=== PATIENT | female | born 1980 | race Caucasian/White ===

== ENCOUNTER 2020-10-05 13:05 | Emergency (ER) | payer OTHER, SELFPAY ==
[~2020-10-05] VITALS: Ht 165.1 cm; Wt 68.0 kg
[2020-10-05 13:25] VITALS: BP_SYST 133
[2020-10-05 13:57] LABS: BASOPHILS % (AUTO) 0.6 % (0.0-2.0); EOSINOPHILS # (AUTO) 0.1 K/uL (0.0-0.4); EOSINOPHILS % (AUTO) 0.8 % (0.0-4.0); HEMATOCRIT 42.1 % (36-48); HEMOGLOBIN 14.5 g/dL (12.0-16.0); LYMPHOCYTES # (AUTO) 2.6 K/uL (1.0-5.5); LYMPHOCYTES % (AUTO) 34.2 % (20.5-51.5); MEAN CORPUSCULAR HEMOGLOBIN 33 pg (27-31); MEAN CORPUSCULAR HGB CONC 34 % (32-36); MEAN CORPUSCULAR VOLUME 95 fL (79.0-98.0); MONOCYTES # (AUTO) 0.5 K/uL (0.0-1.0); NEUTROPHILS # (AUTO) 4.5 K/uL (1.8-7.7); NEUTROPHILS % (AUTO) 58.4 % (40.0-70.0); PLATELET COUNT (AUTO) 357 K/uL (130-430); RED BLOOD CELL COUNT(AUTO) 4.44 MIL/uL (4.2-6.2); RED CELL DISTRIBUTION WIDTH 13.4 % (9.0-15.0); WHITE BLOOD COUNT (AUTO) 7.7 K/uL (4.8-10.8)
[2020-10-05 13:58] LABS: ANION GAP 6 (5-15); CALCIUM 8.6 mg/dL (8.4-11.0); CHLORIDE 101 mmol/L (98-107); CREATININE 0.88 mg/dL (0.55-1.30); GLUCOSE 94 mg/dL (70-99); POTASSIUM 3.3 mmol/L (3.5-5.1); SODIUM SERUM 130 mmol/L (136-145); UREA NITROGEN, BLOOD 7 mg/dL (8-21)
[2020-10-05 14:02] LABS: GFR AFRICAN AMERICAN 92 mL/min (>90)
[2020-10-05 14:06] LABS: ALANINE AMINOTRANSFERASE 47 U/L (12-78); ALBUMIN 4.4 g/dL (3.4-4.8); ALCOHOL, BLOOD 376 mg/dL (<10); ASPARTATE AMINOTRANSFERASE 21 U/L (10-37); TOTAL BILIRUBIN 0.2 mg/dL (0.0-1.0)
[2020-10-05 14:09] LABS: ACETAMINOPHEN < 1 ug/mL (1-30)
[2020-10-05 14:43] LABS: BILIRUBIN,URINE NEGATIVE (NEGATIVE); CLARITY/URINE CLEAR (CLEAR); COLOR,URINE YELLOW (YELLOW); GLUCOSE,URINE NEGATIVE (NEGATIVE); KETONES,URINE NEGATIVE (NEGATIVE); LEUKOCYTE ESTERASE ,URINE NEGATIVE (NEGATIVE); NITRITE, URINE NEGATIVE (NEGATIVE); PROTEIN URINE NEGATIVE (NEGATIVE); UROBILINOGEN,URINE 0.2 (0.2-1.0)
[2020-10-05 15:00] LABS: BLOOD, URINE TRACE (NEGATIVE)
[2020-10-05 15:02] LABS: BACTERIA,URINE None Seen /HPF (None Seen); RBC,URINE 0-3 /HPF (0-3); TRICHOMONAS,URINE None Seen /HPF (None Seen); WBC,URINE NONE SEEN /HPF (0-3); YEAST,URINE None Seen /HPF (None Seen)
[2020-10-05 15:05] LABS: BARBITURATE, URINE NEGATIVE (NEG <=200); BENZODIAZEPINE, URINE NEGATIVE (NEG <=150); CANNABINOID, URINE NEGATIVE (NEG <=50); COCAINE, URINE NEGATIVE (NEG <=150); METHAMPHETAMINES SCREEN,URINE NEGATIVE (NEG <=500); OPIATE, URINE NEGATIVE (NEG <=100); PHENCYCLIDINE SCREEN,URINE NEGATIVE (NEG <=25); UR TRICYCLIC ANTIDEPRESSANTS NEGATIVE (NEG <=300); URINE AMPHETAMINE NEGATIVE (NEG <=500); URINE METHADONE NEGATIVE (NEG <=200); URINE OXYCODONE SCREEN NEGATIVE (NEG <=100); URINE PROPOXYPHENE SCREEN NEGATIVE (NEG <=300)
[2020-10-05] MEDS ORDERED: ALPRAZolam 0.25 MG TABLET PO ONE (19:30)
[2020-10-05] MEDS ORDERED: POTASSIUM CHLORIDE 20 MEQ TAB.PRT.SR PO ONE (20:15)
[2020-10-06 05:00] VITALS: BP_SYST 146
== END 2020-10-06 05:00 | disposition home or self-care (01) ==
LOC: SED 13:05
DX: F32.9 Major depressive disorder, single episode, unspecified (principal); F10.129 Alcohol abuse with intoxication, unspecified; Z20.822 Contact with and (suspected) exposure to COVID-19; Y90.8 Blood alcohol level of 240 mg/100 ml or more
CPT/HCPCS: 36415; 80053; 80307; 81000; 85025; 87426; 93005; 99285; G0480; G0481; G0482

== ENCOUNTER 2021-05-11 15:42 | Emergency (ER) | payer OTHER, SELFPAY ==
[~2021-05-11] VITALS: Ht 167.6 cm; Wt 81.6 kg
[2021-05-11 15:45] VITALS: BP_SYST 143
--- NOTE | 2021-05-11 15:45 | NUR ---
Patient triaged and placed in waiting room. VSS and patient appears in no acute distress at this time. Accompanied by SELF, awaiting available bed, and MD notified of need for MSE.
--- NOTE | 2021-05-11 16:40 | NUR ---
BROUGHT BACK TO BED #4 AND REPORT GIVEN TO MARTHA
--- NOTE | 2021-05-11 16:48 | NUR ---
ER at bedside examining patient.
--- NOTE | 2021-05-11 16:50 | NUR ---
Pt. brought self in with c/o N/V since noon, states she took Motrin for mild DYKES and then vomitted, states vomit has blood in it so became nervous and took 0.25 mg. of Xanax; denies any abd. pain
[2021-05-11 17:44] LABS: BASOPHILS # (AUTO) 0.1 K/uL (0.0-0.2); EOSINOPHILS % (AUTO) 0.3 % (0.0-4.0); HEMATOCRIT 38.7 % (36-48); HEMOGLOBIN 13.3 g/dL (12.0-16.0); LYMPHOCYTES # (AUTO) 0.8 K/uL (1.0-5.5); LYMPHOCYTES % (AUTO) 8.4 % (20.5-51.5); MEAN CORPUSCULAR HEMOGLOBIN 32 pg (27-31); MEAN CORPUSCULAR HGB CONC 34 % (32-36); MEAN CORPUSCULAR VOLUME 94 fL (79.0-98.0); MONOCYTES # (AUTO) 0.4 K/uL (0.0-1.0); MONOCYTES % (AUTO) 4.2 % (1.7-9.3); NEUTROPHILS # (AUTO) 7.9 K/uL (1.8-7.7); NEUTROPHILS % (AUTO) 86.1 % (40.0-70.0); PLATELET COUNT (AUTO) 335 K/uL (130-430); RED BLOOD CELL COUNT(AUTO) 4.12 MIL/uL (4.2-6.2); RED CELL DISTRIBUTION WIDTH 14.6 % (9.0-15.0); WHITE BLOOD COUNT (AUTO) 9.2 K/uL (4.8-10.8)
[2021-05-11 17:49] LABS: BILIRUBIN,URINE NEGATIVE (NEGATIVE); CLARITY/URINE SL CLOUDY (CLEAR); COLOR,URINE YELLOW (YELLOW); GLUCOSE,URINE NEGATIVE (NEGATIVE); KETONES,URINE NEGATIVE (NEGATIVE); LEUKOCYTE ESTERASE ,URINE 1+ (NEGATIVE); NITRITE, URINE NEGATIVE (NEGATIVE); PH,URINE 6.5 (5.0-8.0); PROTEIN URINE TRACE (NEGATIVE); UROBILINOGEN,URINE 0.2 (0.2-1.0)
[2021-05-11 17:51] LABS: BLOOD, URINE TRACE (NEGATIVE)
[2021-05-11 17:59] LABS: CALCIUM 9.1 mg/dL (8.4-11.0); CREATININE 0.89 mg/dL (0.55-1.30); POTASSIUM 3.6 mmol/L (3.5-5.1)
[2021-05-11 18:05] LABS: ALBUMIN 4.3 g/dL (3.4-4.8); TOTAL BILIRUBIN 0.3 mg/dL (0.0-1.0)
[2021-05-11 18:29] LABS: PROTHROMBIN TIME 10.4 SECS (9.5-12.5)
[2021-05-11] MEDS ORDERED: OMEP20CA15 PO (18:48)
[2021-05-11] MEDS ORDERED: ONDA-8 TL (18:48)
[2021-05-11] MEDS ORDERED: ONDANSETRON 4 MG ODT TAB PO ONE (19:00)
[2021-05-11 19:21] VITALS: BP_SYST 142
--- NOTE | 2021-05-11 19:22 | NUR ---
Patient given written and verbal discharge instructions and verbalizes understanding. ER Dr. Montes De Oca discussed with patient the results and treatment provided. Patient in stable condition. ID arm band removed. IV catheter removed intact and dressing applied, no active bleeding. Rx of Zofran and Omeprazole given. Patient educated on pain management and to follow up with PMD. Pain Scale 0. Opportunity for questions provided and answered. Medication side effect fact sheet provided.
[2021-05-11 19:37] LABS: BACTERIA,URINE MODERATE /HPF (None Seen); MUCUS,URINE 2+ /LPF (None Seen); RBC,URINE 0-3 /HPF (0-3); URINE AMORPHOUS URATE 2+ /HPF (None Seen); WBC,URINE 20-50 /HPF (0-3)
== END 2021-05-11 19:22 | disposition home or self-care (01) ==
LOC: SED 15:42
DX: K92.0 Hematemesis (principal); K29.70 Gastritis, unspecified, without bleeding
CPT/HCPCS: 36415; 80053; 81000; 81025; 83605; 83690; 84703; 85025; 85610; 85730; 86886; 86900; 86901; 87086; 99283; Q0162

== ENCOUNTER 2021-09-12 15:23 | Emergency (ER) | payer OTHER, SELFPAY ==
[~2021-09-12] VITALS: Ht 167.6 cm; Wt 84.4 kg
[~2021-09-12 15:23] MED LIST: OMEP20CA15 PO; ONDA-8 TL
--- NOTE | 2021-09-12 15:25 | NUR ---
BLOOD AND CULTURES DRAWN AND SENT TO LAB.
[2021-09-12] MEDS ORDERED: NACL 0.9% 1,000 ML IV ONE (15:30)
--- NOTE | 2021-09-12 15:38 | NUR ---
COVID SWAB COLLECTED AND SENT
--- NOTE | 2021-09-12 15:43 | NUR ---
PATIENT ARRIVED BY EMT UNRESPONSIVE AFTER POSSIBLE OVERDOSE. PATIENT FOUND IN HER CAR AND 911 CALLED. PATIENT FOUND WITH EMPTY BOTTLE OF HYDROCODONE, BUSPAR, FLUOXATINE. PATIENT RESPONSIVE TO PAINFUL STIMULUS BUT NOT VERBAL, PATIENT 96% ON ROOM AIR, PATIENT ST ON THE CARIDAC MONITOR. PATIENT HAS VOMIT ON CLOTHES, ADMINISTERED ZOFRAN AND NARCAN IN ROUTE. POISON CONTROL NOTIFIED AT [phone] SPOKE WITH DON CARPENTER PACKING 109 AND GIVEN RECOMMENDATIONS OF CONTINUOUS CARDIAC MONITORING, LABS, MADE AWARE. ON THE WAY.
[2021-09-12 15:47] VITALS: BP_SYST 105
[2021-09-12 15:58] LABS: BASOPHILS % (AUTO) 0.5 % (0.0-2.0); EOSINOPHILS # (AUTO) 0.1 K/uL (0.0-0.4); HEMATOCRIT 40.6 % (36-48); HEMOGLOBIN 13.6 g/dL (12.0-16.0); LYMPHOCYTES # (AUTO) 2.8 K/uL (1.0-5.5); LYMPHOCYTES % (AUTO) 42.6 % (20.5-51.5); MEAN CORPUSCULAR HEMOGLOBIN 30 pg (27-31); MEAN CORPUSCULAR HGB CONC 34 % (32-36); MEAN CORPUSCULAR VOLUME 91 fL (79.0-98.0); MONOCYTES # (AUTO) 0.5 K/uL (0.0-1.0); MONOCYTES % (AUTO) 7.2 % (1.7-9.3); NEUTROPHILS # (AUTO) 3.1 K/uL (1.8-7.7); NEUTROPHILS % (AUTO) 47.7 % (40.0-70.0); PLATELET COUNT (AUTO) 278 K/uL (130-430); RED BLOOD CELL COUNT(AUTO) 4.48 MIL/uL (4.2-6.2); RED CELL DISTRIBUTION WIDTH 14.7 % (9.0-15.0); WHITE BLOOD COUNT (AUTO) 6.6 K/uL (4.8-10.8)
--- NOTE | 2021-09-12 16:21 | NUR ---
PATIENT AWAKE AT THIS TIME AND WITHDRAWN, REFUSES TO TALK TO STAFF. CHARGE NURSE TRAN NOTIFIED AT THIS TIME THAT PATIENT NEEDS SITTER DUE TO BEING POSSIBLY SUICIDAL. PATIENT AWAKE LAYING ON HER SIDE QUIET. PATIENT REFUSES TO GIVE URINE SPECIMEN AT THIS TIME. NOTIFIED. PATIENT'S ON THE WAY TO BEDSIDE AND WILL ASK HIM TO ENCOURAGE PATIENT. PATIENT IN SAFE ENVIORNMENT CLOSE TO NURSING STATION AND CHARGE NURSE CALLED FOR SITTER AT THIS TIME.
--- NOTE | 2021-09-12 16:27 | NUR ---
ATTEMPT TO COLLECT URINE BUT UNABLE
[2021-09-12 16:37] LABS: CREATININE 0.83 mg/dL (0.55-1.30); POTASSIUM 3.5 mmol/L (3.5-5.1)
--- NOTE | 2021-09-12 16:40 | NUR ---
ACCOMPANIED DR. MUNGUIA TO SPEAK WITH AND MOTHER. REPORTS LAST TIME HE SAW PATIENT WAS AROUND 5 AM AND PATIENT WAS IN BED AT HOME. SHE TOOK THE KIDS TO SCHOOL AND SPOKE TO HIM AGAIN AROUND 9 AM. HE REPORTS THAT SHE SAID SHE WAS HAVING A ROUGH DAY. MOTHER REPORTS DAUGHTER CALLED HER SISTER TO TELL HER WHAT A GOOD SISTER SHE WAS. FAMILY REPORTS HAS PREVIOUS HISTORY OF SI,DEPRESSION, AND ETOH ABUSE . LAST YEAR WHERE SHE HAD A "BREAKDOWN AND PANIC ATTACK. SHE WANTED TO HURT HERSELF AND CALLED 911." PRIMARY NURSE INFORMED
[2021-09-12 16:46] LABS: ALBUMIN 4.1 g/dL (3.4-4.8)
--- NOTE | 2021-09-12 16:51 | NUR ---
MOTHER AT BEDSIDE.
[2021-09-12 17:02] LABS: TOTAL BILIRUBIN 0.1 mg/dL (0.0-1.0)
[2021-09-12 17:29] LABS: INR 0.9 (0.8-1.2); PROTHROMBIN TIME 9.3 SECS (9.5-12.5)
--- NOTE | 2021-09-12 17:37 | NUR ---
MOTHER AT BEDSIDE AND STATES THAT PATIENT HAS MADE OTEHR ATTEMPTS TO HARM HERSELF BY WAY OF INGESTING PILLS. MOTHER STATES THAT PATIENT HAS BEEN DEPRESSED SINCE LOSING STEP DAD TO COVID. PATIENT IS IN AA PROGRAM. PATIENT CALLED HER YOUNGER SIMBLING TODAY AND ASKED IF SHE WAS "A GOOD BIG SISTER". MOTHER STATES THAT SHE STATES THAT SHE BELEIVES HER DAUGHTER DID NOT HAVE ANY PILLS IN THE BOTTLES AND SHE "WILL DRINK". WILL CONTINUE TO MONITOR PATIENT. PATIENT MORE AWAKE AND ALERT BUT WITHDRAWN. LAYS WITH EYES OPEN AND DOES NOT ANSWER VERBAL COMMAND. PATIENT REFUSES TO GIVE URINE SPECIMEN AT THIS TIME HOWERVER MOTHER WILL ASSIST IN OBTAINING URINE.
[2021-09-12] MEDS ORDERED: HYDR-3927 PO (17:45)
[2021-09-12] MEDS ORDERED: BUSP15TA3 PO (17:45)
[2021-09-12] MEDS ORDERED: FLUO40CA8 PO (17:45)
[2021-09-12] MEDS ORDERED: HYDR-3921 PO (17:45)
--- NOTE | 2021-09-12 17:59 | NUR ---
PATIENT UP AND AMBULATORY TO RESTROOM. PATIENT SMILES REALLY BIG AND BRIGHT BUT STATES SHE DOES NOT REMEMBER TAKING ANY MEDEICATIONS. PATIENT COOPERATIVE IN GIVING URINE SPECIMEN AND IN RESTROOM. PATIENT STABLE WITH AMBULATION. WILL CONTINUE TO MONITOR THE PATIENT.
--- NOTE | 2021-09-12 18:13 | NUR ---
PATIENT STATES SHE TOOK 3 NORCO, UNKNOWN AMOUNT OF BUSPAR AND NONE OF THE PROZAC, PATIENT UNABLE TO URINATE AT THIS TIME EVEN WHEN UP TO THE BATHROOM
--- NOTE | 2021-09-12 18:15 | NUR ---
PATIENT DENIES SI AND HI AND DENIES HALLUCINATIONS. PATIENT APPEARS VERY WITHDRAWN. COMFORT MEASURES IMPLEMENTED AND GIVEN WARM BLANKETS.
--- NOTE | 2021-09-12 18:54 | NUR ---
poison control called to check on patient at this time, given vitals signs and updates, given telephone to MD to take orders. patient's brother is at bedside at this time with her. patient NSR on the monitor with no ectopy. will continue to monitor patient. comfort and safety implemented and maintained.
--- NOTE | 2021-09-12 18:59 | NUR ---
patient unable to urinate. patient encouraged to urinate at this time
--- NOTE | 2021-09-12 19:36 | NUR ---
RECIEVED CHANGE OF SHIFT REPORT FROM DAYSHIFT RN. PT AWAITING PET EVAL AT THIS TIME. PT ON OB/GYN NURSE, CALM, STABLE, AND RESTING COMFORTABLY WITH MOTHER AT THE BEDSIDE. WILL CONTINUE TO MONITOR CLOSELY.
--- NOTE | 2021-09-12 20:06 | NUR ---
PT STATED "SINCE COVID I JUST FELT LIKE I DID NOT WANT TO BE HERE ANYMORE". DENIES HX OF SELF HARM PRIOR TO ARRIVAL. PT ENCOURAGED TO PROVIDE URINE SPECIMEN WHEN ABLE. PT PLACED IN ROOM CLOSE TO THE NURSING STATION. INSTRUCTED PT THAT SHE MUST REMAIN IN THE SIGHT OF ED STAFF, AND ENCOURAGED TO NOTIFY STAFF WHEN SHE NEEDS TO USE THE RESTROOM. PT CONTRACTED FOR SAFETY, STATING "I WONT DO THIS AGAIN" PT PLACED ON SUICIDE PRECAUTIONS. WILL MONITOR FOR SAFETY CLOSELY. AT THE BEDSIDE FOR EMOTIONAL SUPPORT.
[2021-09-12 21:29] LABS: CALCIUM 8.5 mg/dL (8.4-11.0); CREATININE 0.75 mg/dL (0.55-1.30); POTASSIUM 4.3 mmol/L (3.5-5.1)
[2021-09-12 21:41] LABS: ALBUMIN 3.9 g/dL (3.4-4.8)
[2021-09-12 21:58] LABS: TOTAL BILIRUBIN 0.1 mg/dL (0.0-1.0)
--- NOTE | 2021-09-13 | NUR ---
PT REPORTS PAIN OF THE LEFT ANKLE. SWELLING NOTED WITH MILD BRUISING. PT UNABLE TO RECALL HOW SHE MAY HAVE INJURED HER LEFT ANKLE. PT INFORMED THAT DUE TO POLY MEDICATION OVERDOSE, UNABLE TO PROVIDE HER WITH PHARMACEUTICAL PAIN RELIEF. AWARE, AWAITING XRAY. PT AT THE BEDSIDE. PT ON SUICIDE PRECAUTIONS. WILL MONITOR NEEDED.
[2021-09-13] MEDS ORDERED: NACL 0.9% 1,000 ML IV ONE (06:15)
--- NOTE | 2021-09-13 07:45 | NUR ---
RECEIVED PT UNDER MY CARE IN ROOM 5. PT IS A 41 Y/O FEMALE, AWAKE ALERT AND ORIENTED. C/O LEFT ANKLE PAIN, LEFT ANKLE WITH MINIMAL SWELLING NOTED. +CMS. PT ENODORSES TAKING A HANDFULL OF PILLS WITH ALCOHOL TO HURT SELF. SHE CONTINUES TO ENODORSE SI, DENIES ANY H/I. POISON CONTROL HAS BEEN CALLED. PT AWAITS PSYCHIATRIC EVALUATION. IS AT BEDSIDE. PT IN HIGH VISIBILITY. WILL CONTINUE TO MONITOR
--- NOTE | 2021-09-13 08:00 | NUR ---
PT GOWNED. ROOM CLEARED PER PROTOCOL. CHARGE NURSE MADE AWARE OF PT AWAITING FOR PSHYCH EVALUATION. PLAN OF CARE REVIEWED WITH PATIENT AND WITH VERBALIZED UNDERSTANDING.
--- NOTE | 2021-09-13 09:42 | NUR ---
PT AWAITS FOR PSYCHIATRIC EVALUATION.
--- NOTE | 2021-09-13 11:29 | NUR ---
portable xray being done. pt awaits for psychiatric evaluation. bed to lowest position. siderails up x2
--- NOTE | 2021-09-13 12:28 | NUR ---
PT AWAKE ALERT AND ORIENTED. NO DISTRESS NOTED.AWAITS FOR PSYCHIATRIC EVALUATION. NO DISTRESS NOTED. BED TO LOWEST POSITION. SIDERAILS UP X2
--- NOTE | 2021-09-13 14:15 | NUR ---
Dr Rivera at bedside, psychiatric evaluation in progress.
--- NOTE | 2021-09-13 14:39 | NUR ---
As per Dr Robison, pt will be discharge from ER and will go to [facility]. pt awake alert and oriented.
[2021-09-13 15:04] VITALS: BP_SYST 115
--- NOTE | 2021-09-13 15:06 | NUR ---
Patient given written and verbal discharge instructions and verbalizes understanding. ER MD discussed with patient the results and treatment provided. Patient in stable condition. ID arm band removed. IV catheter removed intact and dressing applied, no active bleeding. Patient will follow up with Dr. Robison at [place] upon discharge. Pain Scale 0/10. Opportunity for questions provided and answered. Medication side effect fact sheet provided.
== END 2021-09-13 15:04 | disposition home or self-care (01) ==
LOC: SED 15:23
DX: T50.991A Poisoning by other drugs, medicaments and biological substances, accidental (unintentional), initial encounter (principal); R41.82 Altered mental status, unspecified; F10.129 Alcohol abuse with intoxication, unspecified; F41.9 Anxiety disorder, unspecified; F32.9 Major depressive disorder, single episode, unspecified; Z79.899 Other long term (current) drug therapy; Z20.822 Contact with and (suspected) exposure to COVID-19; Y92.89 Other specified places as the place of occurrence of the external cause
CPT/HCPCS: 36415; 70450; 71045; 73600; 76376; 80053; 81025; 84484; 85025; 85610; 85730; 87426; 93005; 96360; 96361; 99285; G0480; J7030 ×2; G0481; G0482